=== PATIENT | male | born 1990 | race Caucasian/White ===

== ENCOUNTER 2021-01-28 12:26 | Emergency (ER) | payer MEDICAID ==
[~2021-01-28] VITALS: Ht 177.8 cm; Wt 114.0 kg
[2021-01-28] MEDS ORDERED: MED4 MT (14:16)
[2021-01-28] MEDS ORDERED: VALA100044 MT (14:16)
[2021-01-28] MEDS ORDERED: POLY15DR31 LEFTEYE (14:16)
[2021-01-28 14:24] VITALS: BP 132/78
[2021-01-28] MEDS ORDERED: DEXAMETHASONE 4MG TABLET PO ONE (14:30)
== END 2021-01-28 14:24 | disposition home or self-care (01) ==
LOC: ER 12:26
DX: G51.0 Bell's palsy (principal)
CPT/HCPCS: 99283; J8540